=== PATIENT | female | born 1970 | race Caucasian/White ===

== ENCOUNTER 2017-03-10 01:15 | Observation (INO) | payer OTHER ==
[~2017-03-10] VITALS: Ht 157.5 cm; Wt 84.4 kg
[2017-03-10 01:56] LABS: HEMOGLOBIN 13.1 gm/dl (12.3-15.3); RED BLOOD COUNT 4.93 M/UL (4.00-5.10); WHITE BLOOD COUNT 11.4 K/UL (4.5-11.0)
[2017-03-10 02:14] LABS: BUN/CREATININE RATIO 19 (0-10)
[2017-03-10] MEDS ORDERED: GLUCOPHAGE1000 MG PO (11:25)
[2017-03-10] MEDS ORDERED: NAPROSYN500 MG PO (11:26)
[2017-03-10] MEDS ORDERED: NEURONTIN 400400 MG PO (11:26)
[2017-03-10] MEDS ORDERED: OMEPRAZOLE40 MG PO (11:27)
[2017-03-11 06:29] LABS: HEMOGLOBIN 12.9 gm/dl (12.3-15.3); RED BLOOD COUNT 4.89 M/UL (4.00-5.10); WHITE BLOOD COUNT 8.8 K/UL (4.5-11.0)
[2017-03-11 06:42] LABS: BUN/CREATININE RATIO 20 (0-10)
--- NOTE | 2017-03-12 08:01 | NUR ---
PATIENT OFF THE FLOOR WITH SPOUSE TO SMOKE.
[2017-03-13] MEDS ORDERED: COREG 3.125M3.125 MG PO ×2 (10:12→10:13)
[2017-03-13] MEDS ORDERED: PLAQUENIL 200200 MG PO (10:14)
[2017-03-13] MEDS ORDERED: BYDUREON P2 MG/0.65 SQ (10:14)
--- NOTE | 2017-03-13 10:17 | NUR ---
MEDICATION VERIFIED PER PATIENT AND SPOUSE AND MEDICATION BROUGHT AT HOSPITAL.
--- NOTE | 2017-03-13 10:22 | NUR ---
VERIFIED MEDICATIONS [facility].
[2017-03-13] MEDS ORDERED: LEVAQUIN750 MG PO (16:52)
[2017-03-13] MEDS ORDERED: IMDUR ER TAB 3030 MG PO (16:52)
[2017-03-13] MEDS ORDERED: LEVEMIR FL100 UNIT/1 SQ (16:53)
[2017-03-13] MEDS ORDERED: NOVOLOG MI100 UNIT/1 SQ (16:54)
[2017-03-13] MEDS ORDERED: PROVENTIL HFA 61 INH INH (16:55)
[2017-03-13] MEDS ORDERED: ASPIR-LOW81 MG PO (17:01)
== END 2017-03-13 18:45 | disposition home or self-care (01) ==
LOC: ER1 01:15 → ZEROF 06:13 → M/S 06:13 → ZEROF 03-12 11:48 → M/S 03-13 18:45
PROVIDERS: Emergency Medicine; ADMIT Internal Medicine
DX: J18.9 Pneumonia, unspecified organism (principal); I20.9 Angina pectoris, unspecified; E11.65 Type 2 diabetes mellitus with hyperglycemia; I10 Essential (primary) hypertension; M51.36 Other intervertebral disc degeneration, lumbar region; M06.9 Rheumatoid arthritis, unspecified; M79.7 Fibromyalgia; E66.9 Obesity, unspecified; J40 Bronchitis, not specified as acute or chronic; R79.89 Other specified abnormal findings of blood chemistry; F17.210 Nicotine dependence, cigarettes, uncomplicated; Z79.82 Long term (current) use of aspirin; Z79.899 Other long term (current) drug therapy; Z98.51 Tubal ligation status; Z88.1 Allergy status to other antibiotic agents; Z82.49 Family history of ischemic heart disease and other diseases of the circulatory system
CPT/HCPCS: ECHO; 36415; 71010; 78452; 80048; 80053; 80061; 82550; 82553; 82962; 83036; 83605; 83690; 83874; 83880; 84484; 84703; 85025; 85027; 85610; 85730; 93005; 93017; 93306; 99285; A9502; G0378; J1815; J1956; J2785; J7050; Q9963

== ENCOUNTER 2017-03-21 01:05 | Inpatient (IN) | payer OTHER ==
[~2017-03-21] VITALS: Ht 157.5 cm; Wt 81.6 kg
[~2017-03-21 01:05] MED LIST: ASPIR-LOW81 MG PO; BYDUREON P2 MG/0.65 SQ; COREG 3.125M3.125 MG PO; GLUCOPHAGE1000 MG PO; IMDUR ER TAB 3030 MG PO; LEVAQUIN750 MG PO; LEVEMIR FL100 UNIT/1 SQ; NAPROSYN500 MG PO; NEURONTIN 400400 MG PO; NOVOLOG MI100 UNIT/1 SQ; OMEPRAZOLE40 MG PO; PLAQUENIL 200200 MG PO; PROVENTIL HFA 61 INH INH
[2017-03-21 04:20] LABS: HEMOGLOBIN 11.6 gm/dl (12.3-15.3); RED BLOOD COUNT 4.44 M/UL (4.00-5.10); WHITE BLOOD COUNT 9.4 K/UL (4.5-11.0)
[2017-03-21 04:42] LABS: BUN/CREATININE RATIO 19 (0-10)
[2017-03-22 05:05] LABS: HEMOGLOBIN 11.2 gm/dl (12.3-15.3); RED BLOOD COUNT 4.31 M/UL (4.00-5.10); WHITE BLOOD COUNT 8.8 K/UL (4.5-11.0)
[2017-03-22 05:27] LABS: BUN/CREATININE RATIO 18 (0-10)
[2017-03-22] MEDS ORDERED: LIPITOR TAB 2020 MG PO (11:34)
[2017-03-22] MEDS ORDERED: HABITROL 14 MG P1 EA TD (11:42)
[2017-03-22] MEDS ORDERED: BRILINTA90 MG PO (11:43)
[2017-03-22] MEDS ORDERED: ZESTRIL20 MG PO (11:45)
== END 2017-03-22 12:23 | disposition home or self-care (01) | DRG 247 ==
LOC: ER1 01:05 → ZEROF 05:40 → M/S 07:29 → PROG CARE 13:50
PROVIDERS: Internal Medicine; Student in an Organized Health Care Education/Training Program; ADMIT Hospitalist
PROC: 4A023N7 Measurement of Cardiac Sampling and Pressure, Left Heart, Percutaneous Approach (ICD-10-PCS; principal; 2017-03-21)
PROC: B2111ZZ Fluoroscopy of Multiple Coronary Arteries using Low Osmolar Contrast (ICD-10-PCS; principal; 2017-03-21)
PROC: 027034Z Dilation of Coronary Artery, One Artery with Drug-eluting Intraluminal Device, Percutaneous Approach (ICD-10-PCS; principal; 2017-03-21)
DX: I21.4 Non-ST elevation (NSTEMI) myocardial infarction (principal); I25.119 Atherosclerotic heart disease of native coronary artery with unspecified angina pectoris; E11.9 Type 2 diabetes mellitus without complications; I10 Essential (primary) hypertension; F43.0 Acute stress reaction; M06.9 Rheumatoid arthritis, unspecified; M51.36 Other intervertebral disc degeneration, lumbar region; M79.7 Fibromyalgia; F17.210 Nicotine dependence, cigarettes, uncomplicated; E78.5 Hyperlipidemia, unspecified; D64.9 Anemia, unspecified; E66.9 Obesity, unspecified; Z68.34 Body mass index [BMI] 34.0-34.9, adult; Z72.3 Lack of physical exercise; Z79.899 Other long term (current) drug therapy; Z88.8 Allergy status to other drugs, medicaments and biological substances; Z82.49 Family history of ischemic heart disease and other diseases of the circulatory system; Z79.82 Long term (current) use of aspirin; Z79.51 Long term (current) use of inhaled steroids; Z79.84 Long term (current) use of oral hypoglycemic drugs; Z79.4 Long term (current) use of insulin
CPT/HCPCS: 36415; 71020; 80048; 80053; 82550; 82553; 82962; 83874; 83880; 84484; 85025; 85027; 85347; 85610; 85730; 93005; 94664; 99285; C1725; C1874; C1887; C1894; C9600; J0360; J1644; J2250; J2405; J3010; Q9963

== ENCOUNTER → 2021-12-06 | Outpatient (CLI) | payer MEDICARE, OTHER ==
[~2021-12-06] VITALS: Ht 157.5 cm; Wt 78.9 kg
[~2021-12-06] MED LIST changes: +BRILINTA90 MG PO; +HABITROL 14 MG P1 EA TD; +LIPITOR TAB 2020 MG PO; +ZESTRIL20 MG PO
== END ==
LOC: EROP 11:32
DX: U07.1 COVID-19 (principal); Z23 Encounter for immunization; E11.9 Type 2 diabetes mellitus without complications; I10 Essential (primary) hypertension
CPT/HCPCS: M0247; Q0247